=== PATIENT | male | born 1960 | race Two or more races ===

== ENCOUNTER 2025-05-09 01:47 | Emergency (ER) | payer OTHER ==
[~2025-05-09] VITALS: Ht 188 cm; Wt 97.5 kg
[2025-05-09] MEDS ORDERED: TOPROL XL50 M1 PO (02:22)
[2025-05-09] MEDS ORDERED: GLIPIZIDE XL5 MG PO (02:22)
[2025-05-09] MEDS ORDERED: ROSUVASTATIN CA10 MG PO (02:22)
[2025-05-09] MEDS ORDERED: METFORMIN HCL750 MG PO (02:22)
[2025-05-09] MEDS ORDERED: HYDROCHLOROTH12.5 M2 PO (02:23)
[2025-05-09] MEDS ORDERED: ORPHENADRINE CITRATE 30 MG/ML AMPUL IM STA (03:03)
[2025-05-09] MEDS ORDERED: DEXAMETHASONE SODIUM PHOSPHATE 4 MG/ML VIAL IM STA (03:04)
[2025-05-09] MEDS ORDERED: ORPHENADRINE CITRATE 30 MG/ML AMPUL ONE (03:08)
[2025-05-09] MEDS ORDERED: DEXAMETHASONE SODIUM PHOSPHATE 4 MG/ML VIAL ONE (03:08)
[2025-05-09 04:11] LABS: BASO % 0.3 % (0.1-1.2); EOS # 0.02 (0.04-0.54); EOS % 0.1 % (0.7-7.0); LYMPH # 1.70 (1.18-3.74); LYMPH % 9.6 % (19.3-53.1); MEAN PLATELET VOLUME 10.50 fl (9.4-12.4); MONO # 0.65 (0.24-0.82); MONO % 3.7 % (4.7-12.5); NEUT # 15.30 (1.56-6.13); NEUT % 86.0 % (34.0-71.1); RED CELL DISTRIBUTION WIDTH 13.1 % (11.6-14.4)
[2025-05-09 04:22] LABS: INR 1.04
[2025-05-09 04:27] LABS: ALT/SGPT 53 U/L (12-78); AST/SGOT 30 U/L (15-37); BILIRUBIN TOTAL 0.50 mg/dL (0.3-1.2); BUN CREA RATIO 21 (7.0-25.0); CREATININE SERUM 1.21 mg/dL (0.70-1.30); GFR 60.76; GLOBULINA 3.9 G/DL (2.4-3.5); GLUCOSE FASTING 158 mg/dL (65-100); OSMOLALITY SERUM 291 MOSM/KG (275-295); PHOSPHOKINASE CREATININE 113 U/L (39-308)
[2025-05-09] MEDS ORDERED: TRAMADOL HCL50 MG PO (07:11)
== END 2025-05-09 07:28 | disposition home or self-care (01) ==
LOC: ER 01:48
PROVIDERS: Physician Assistant Medical
DX: M54.16 Radiculopathy, lumbar region (principal); M51.361 Other intervertebral disc degeneration, lumbar region with lower extremity pain only; M79.661 Pain in right lower leg; E11.9 Type 2 diabetes mellitus without complications; Z79.84 Long term (current) use of oral hypoglycemic drugs; I10 Essential (primary) hypertension; Z88.2 Allergy status to sulfonamides